=== PATIENT | female | born 1945 | race Caucasian/White ===

== ENCOUNTER 2016-08-18 10:20 | Emergency (ER) | payer MEDICARE ==
[~2016-08-18] VITALS: Ht 160 cm; Wt 127.0 kg
[~2016-08-18 10:20] MED LIST: ACET-2605 PO; CYCL10TA9 PO; ESCI20TA PO; GABA-502 PO; IPRA4AER IH; LISI-610 PO; LOPE1TAB13 PO; LOVA40TA PO; MELO-259 PO; METF500T7 PO; NPH,100V10 SUBQ; OXYC10TA86 PO; OXYC1TAB24 PO; PRE20 PO; QUE9 PO; RISP1TAB3 PO; RISP1TAB90 PO; TRAM50TA2 PO; TRAZ300T3 PO; VERA240T97 PO; VIT1CAPS8 PO
--- NOTE | 2016-08-18 10:33 | ED.REPORT ---
HPI-Trauma Minor / Fall Date of Service Aug 18, 2016 ED Provider: The patient is a 71 year old female with history of diabetes mellitus, neuropathy, hyperlipidemia, and hypertension, who presents to the emergency department by EMS after she had a ground level fall prior to arrival. The patient had a mechanical fall outside and landed on her right knee and elbow. She did not hit her head or lose consciousness. She complains of neck pain and chronic back pain that is unchanged. She denies any other injuries or traumas. She has chronic diarrhea. She denies fever, chills, abdominal pain, vomiting, dysuria, hematuria or cough. She is not on any blood thinners. Nursing Notes Stated Complaint: GLF Nursing Notes Reviewed: Yes Allergies: Coded Allergies: venom-honey bee (Verified Allergy, Unknown, 10/23/15) UPDATED FROM UNCODED amoxicillin (Verified Adverse Reaction, Intermediate, itching, 07/14/15) TOLERATES CEPHALOSPORINS codeine (Verified Adverse Reaction, Intermediate, Rash,Itching,, 07/14/15) Scheduled Albuterol/Ipratropium (Combivent Respimat Inhal [place]) 120 Spr/4 Gm Inhaler 2 PUFF IH QID Cholestyramine (Cholestyramine Packet) 4 Gm Packet 4-8 GM PO BIDAC Escitalopram Oxalate (Lexapro) 20 Mg Tablet 20 MG PO DAILY Gabapentin (Gabapentin) 300 Mg Capsule 300 MG PO BID Lisinopril (Zestril) 10 Mg Tablet 40 MG PO DAILY Lovastatin (Lovastatin) 40 Mg Tablet 40 MG PO HS Metformin ER (Metformin ER) 500 Mg Tablet 1,000 MG PO BIDWM NPH, Human Insulin Isophane (Novolin-N U100 Insulin Vial) 100 Unit/1 Ml Vial 80 UNIT SUBQ BID Prednisone (PredniSONE) 20 Mg Tablet 40 MG PO DAILY Risperidone (Risperidone) 1 Mg Tablet 1 MG PO DAILY Risperidone (Risperdal) 1 Mg Tablet 2 MG PO HS Trazodone (Trazodone) 300 Mg Tablet 300 MG PO HS Verapamil ER (Verapamil ER) 240 Mg Tber 240 MG PO DAILY Vit C/Vit E/Lutein/Min/[place]-3 (Ocuvite Softgel) 1 Each Capsule 1 EACH PO DAILY oxyCODONE ER (oxyCODONE ER) 10 Mg Tab.er.12h 10 MG PO DAILY Scheduled PRN Acetaminophen/Diphenhydramine (Tylenol Pm Ex-Strength Caplet) 500 Mg-25 Mg Tablet 2 EACH PO HS PRN PRN Insomnia Cyclobenzaprine (Cyclobenzaprine) 10 Mg Tablet 10 MG PO DAILY PRN PRN Spasm Loperamide/Simethicone (Imodium Multi-Symptom Rel Cplt) 1 Each Tablet 1-2 EACH PO DIRECTED PRN PRN For Diarrhea or Loose Stool Meloxicam (Meloxicam) 7.5 Mg Tablet 7.5 MG PO DAILY PRN PRN back pain take with food. Tramadol (Tramadol) 50 Mg Tablet 50-100 MG PO every 8 hours PRN PRN For Pain oxyCODONE-Acetaminophen 5-325 mg (oxyCODONE-Acetaminophen 5-325 mg) 1 Each Tablet 1 TAB PO Q6H PRN PRN For Pain General Time Seen by MD: 10:32 Chief Complaint Fall Hx Obtained From: Patient, EMS Arrived By: Ambulance Onset Occurred: Just prior to arrival Symptom Duration: Since onset Caused by: Fall on ground Severity: Current: Moderate Severity: Maximum: Moderate Recent Healthcare: No recent hospitalization Past Medical History Past Medical History C Diff Diverticulitis Pancreatic lesion Hx of shingles Chronic neuropathy Diabetes mellitus Anxiety Depression High cholesterol Sleep apnea on CPAP Aortic stenosis Hypertension Macular degeneration Past Surgical History Cardiac catheterization Hysterectomy Cataracts Family History Noncontributory Smoking History Former Smoker Social History daughter help with med dosing and grocery shopping. Visiting nurse weekly Alcohol Use: Denies alcohol use Drug Use: Denies drug use Other Social History: Good social support, Local resident Occupation retired, lives by self Ambulatory Status Cane Review of Systems Constitutional: Denies: Chills, Fever Respiratory: Denies: Non-productive cough Musculoskeletal: Reports: Back pain (chronic), Extremity pain, Joint pain, Neck pain Neurologic: Denies: Change LOC, Headache, Syncope Complete sys rev & neg: except as marked. GI: Reports: Diarrhea (chronic), Denies: Abdominal pain, Vomiting Female: Denies: Dysuria, Hematuria Physical Exam Initial Vital Signs Vital Signs (First) Date Time Temp Pulse Resp B/P Pulse Ox O2 Delivery O2 Flow Rate FiO2 08/18/16 10:39 36.9 75 10 145/69 97 Room Air Initial VS: Reviewed Head / Eyes: Atraumatic, Normocephalic, PERRL ENT: Mucous membranes moist, Conjunctiva normal, No scleral icterus Respiratory: Breath sounds normal, Clear to auscultation, No respiratory distress Abdomen / GI: Soft, Non-tender, No guarding, No rebound, No distention Lymphatic: No lymphadenopathy Extremities: Vascular intact, Neuro intact Skin: Warm, Dry, No cyanosis Neurologic: Alert, Oriented, Nonfocal Psychiatric: Mood/affect normal, Behavior normal, Normal thought content General/Constitutional: Awake, Alert Neck: No midline vertebral tend Cardiovascular: Heart rate NL, Regular rhythm Heart Sounds / Murmur: Positive: Systolic murmur present.. (II/) Lower Extremity / Pelvis / MS: Neurologic intact, Vascular intact Painful range of motion of her right knee. Contusion of right knee. Ankle / Foot: Atraumatic, Inspection NL, Non-tender, No deformity, Neurologic intact Interpretation & Diagnostics Lab Results Interpretation Result Diagram: 08/18/16 1107 08/18/16 1107 Test 08/18/16 11:07 08/18/16 12:25 White Blood Count 12.9th/mm3 (3.8-10.1) Red Blood Count 4.03mil/mm3 (3.90-5.20) Hemoglobin 11.8g/dL (12.0-15.6) Hematocrit 40.1% (35.0-46.0) Mean Corpuscular Volume 99.5fL (81-100) Mean Corpuscular Hemoglobin 29.3pg (27.0-35.0) Mean Corpuscular Hemoglobin Concent 29.4% (32.0-37.0) Red Cell Distribution Width 14.0% (12.3-15.4) Platelet Count 171bil/L (150-400) Neutrophils (%) (Auto) 35.4% (40-74) Lymphocytes (%) (Auto) 57.6% (14-46) Monocytes (%) (Auto) 4.7% (4-12) Eosinophils (%) (Auto) 1.6% (0-5) Basophils (%) (Auto) 0.3% (0-3) Sodium Level 143mEq/L (134-144) Potassium Level 4.8mEq/L (3.5-5.2) Chloride Level 105mEq/L (97-108) Carbon Dioxide Level 24mmol/L (18-29) Blood Urea Nitrogen 17mg/dL (8-27) Creatinine 0.86mg/dL (0.57-1.00) Estimat Glomerular Filtration Rate 94mL/min (>59) Glucose Level 153mg/dL (60-99) Calcium Level 10.1mg/dL (8.5-10.1) Total Bilirubin 0.3mg/dL (0.0-1.2) Aspartate Amino Transf (AST/SGOT) 16U/L (0-50) Alanine Aminotransferase (ALT/SGPT) 21U/L (0-32) Alkaline Phosphatase 58U/L (25-165) Total Protein 6.2g/dL (6.4-8.4) Albumin 3.7g/dL (3.4-5.0) ECG Interpretation ECG Interpretation: Sinus rhythm with a rate of 75 Time: 11:03 Interpreted by: ED physician X-Ray Chest Interpretation Chest Xray Interpretation: IMPRESSION: 1. No acute cardiopulmonary process is suspected. 2. Prominence of the cardiomediastinal silhouette is likely exaggerated by patient positioning. If there is high clinical concern for mediastinal trauma, please consider obtaining a CT of the chest with contrast. Dictated by: Tung Gurrola M.D. on 08/18/2016 at 11:01 Interpretation / Wet Read by: Interpret - Radiologist X-Ray Interpretation Xray Interpretation: IMPRESSION: 1. No acute lumbar fractures are evident. 2. Advanced multilevel degenerative changes of the lumbar spine. Dictated by: Tung Gurrola M.D. on 08/18/2016 at 10:56 Study Performed: Lumbar spine Interpretation / Wet Read by: Interpret - Radiologist Xray Interpretation: IMPRESSION: 1. No acute right knee fracture. 2. Mild to moderate degenerative changes of the right knee. Dictated by: Tung Gurrola M.D. 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 The actual degree of spinal stenosis may be more prominent than estimated by CT scanning, and would be more accurately assessed with MR scanning if clinically indicated. No acute trauma found. Dictated by: Mark Oneal M.D. on 08/18/2016 at 11:48 Study type: CT no contrast Interpretation / Wet Read by: Interpret - Radiologist Re-Eval/Medical Decision Med Decision/Clinical Course No dangerous cause for the fall is identified. No fractures or injuries. No metabolic or cardiogenic or infectious cause for the fall is discovered. I counseled her extensively regarding safe ambulation with a walker and cannot stoop over when picking up after her dog. Source of Hx: Old records, EMS Re-Evaluation/Progress : Time of Eval: 12:58 Re-Evaluation/Progress Note: Rechecked the patient. Discussed results, diagnosis, and plan for discharge. All questions were addressed. Counseled Regarding: Diagnosis, Lab results, Need for follow-up, When/why to return to ED Discharge & Departure Impression: Primary Impression: Fall from ground level Additional Impressions: Contusion of neck Encounter type: initial encounter Qualified Code: S10.93XA - Contusion of unspecified part of neck, initial encounter Contusion of right knee Encounter type: initial encounter Qualified Code: S80.01XA - Contusion of right knee, initial encounter Contusion of lower back Encounter type: initial encounter Qualified Code: S30.0XXA - Contusion of lower back and pelvis, initial encounter Disposition: Home Discharge Condition All VS Reviewed: Yes Condition: Stable Patient Instructions: Contusions in Adults (ED), Fall Prevention for Older Adults (GEN) Additional Instructions: Thank you for entrusting us with your care today. Your workup today included labs, EKG, neck CT, chest x-ray, lumbar spine x-ray, and right knee x-ray. Your results are reassuring. There is no evidence of any fractures. Take ibuprofen 400 mg every 8 hours and/or Tylenol 1000 mg every 6 hours. Take Vicodin 1 or 2 every 6 hours as needed for severe pain. I recommend that you use your walker to ambulate. Followup with your regular doctor if your symptoms are not improving in 1 week. Seek care sooner for any new or concerning symptoms. Referrals: Harrison Azevedo MD (PCP) Scribe Attestation Portions of this note were transcribed by Katt Crook. I, Dr. Ornelas personally performed the history, physical exam and medical decision-making; I reviewed and confirmed the accuracy of the information in the transcribed note. Signed by: Abisai Sung, 08/18/2016 at 1305. copies to: Harrison Azevedo MD, Kirk H MD Aug 18, 2016 10:33 Katt Crook Aug 18, 2016 10:40
[2016-08-18 10:39] VITALS: BP 145/69; PULSE 75; RESP 10; O2SAT 97
[2016-08-18] MEDS ORDERED: HYDROcodone-APAP 5-325 mg Tablet PO ONE ×2 (10:40→13:05)
[2016-08-18 11:19] LABS: BASOPHILS % (AUTO) 0.3 % (0-3)
[2016-08-18 11:26] LABS: EOSINOPHILS % (AUTO) 1.6 % (0-5); MONOCYTES % (AUTO) 4.7 % (4-12); Mean Corpuscular Hemoglobin 29.3 pg (27.0-35.0); Mean Corpuscular Volume 99.5 fL (81-100); NEUTROPHILS % (AUTO) 35.4 % (40-74); Platelet Count 171 bil/L (150-400)
--- NOTE | 2016-08-18 11:52 | DRSVH ---
PROCEDURE: CT CERVICAL SPINE WITHOUT CONTRAST ([id number]) INDICATIONS: trauma TECHNIQUE: Noncontrast 3 mm thick sections acquired from the skull base to the T4 level. Sagittal and coronal r eformats were then constructed. For radiation dose reduction, the following was used: automated exp osure control, adjustment of mA and/or kV according to patient size. COMPARISON: [facility], CT, C-SPINE W/O CONTRAST, 06/13/2013, 20:05. FINDINGS: Image quality: Excellent. Bones: No fractures or dislocations, and previously present degenerative disc disease and facet oste oarthritis along the cervical spine, most pronounced at the mid cervical spine, is again seen without appreciable worsening. This is most evident at C4-5 through C6-7.. Visualized superior ribs are in tact. Soft tissues: Prevertebral soft tissues are normal in thickness. No paravertebral hematomas. No ap ical pneumothoraces. IMPRESSION: Stable appearing quite severe midcervical degenerative disc disease and facet osteoarthri tis with associated moderately severe spinal and foraminal stenosis at C5-6 and C6-7. The actual deg ree of spinal stenosis may be more prominent than estimated by CT scanning, and would be more accurat trang assessed with MR scanning if clinically indicated. No acute trauma found. Dictated by: Mark Oneal M.D. on 08/18/2016 at 11:48 Approved by: Mark Oneal M.D. on 08/18/2016 at 11:51
--- NOTE | 2016-08-18 12:02 | DRSVH ---
PROCEDURE: X-RAY LUMBAR SPINE, 2 OR 3 VIEW INDICATIONS: trauma TECHNIQUE: 3 views of the lumbar spine were acquired. COMPARISON: None. FINDINGS: Bones: There are 5 lumbar-type vertebral bodies. The lowest intervertebral disk space is designated a s L5-S1. The vertebral body heights are well-maintained without evidence to suggest an acute compress ion fracture. The bone mineralization is within normal limits. Severe multilevel degenerative changes of the lumbar spine are evident demonstrating multilevel disc height loss, endplate irregularity, disc osteophyte complexes, facet arthropathy. These findings are more pronounced within the upper lumbar levels. Moderate degenerative changes of the sacroiliac shaheen nts are present. Degenerative changes of the right hip are incidentally noted. Soft tissues: The soft tissues of the imaged abdomen and pelvis are within normal limits. IMPRESSION: 1. No acute lumbar fractures are evident. 2. Advanced multilevel degenerative changes of the lumbar spine. Dictated by: Tung Gurrola M.D. on 08/18/2016 at 10:56 Approved by: Tung Gurrola M.D. on 08/18/2016 at 11:01
--- NOTE | 2016-08-18 12:04 | DRSVH ---
PROCEDURE: X-RAY CHEST ONE VIEW, PORTABLE ([id number]) INDICATIONS: trauma TECHNIQUE: One view of the chest was acquired. COMPARISON: [facility], CT, CT ANGIO CHEST PE, 03/06/2016, 15:27. [facility] l, CR, XR CHEST 1VW (PORTABLE), 03/06/2016, 12:01. [facility], CR, XR CHEST 2VW, 015, 16:44. FINDINGS: Surgical changes and devices: None. Lungs and pleura: No definite consolidation, effusion, or pneumothorax is evident. Mediastinum: The cardiomediastinal silhouette is prominent in size, which is felt to be related to po rtable supine technique. There is aortic atherosclerosis. Bones and chest wall: No suspicious bony lesions. Degenerative changes of the spine are present. O verlying soft tissues appear unremarkable. IMPRESSION: 1. No acute cardiopulmonary process is suspected. 2. Prominence of the cardiomediastinal silhouette is likely exaggerated by patient positioning. If there is high clinical concern for mediastinal trauma, please consider obtaining a CT of the chest wi th contrast. Dictated by: Tnug Gurrola M.D. on 08/18/2016 at 11:01 Approved by: Tung Gurrola M.D. on 08/18/2016 at 11:02
--- NOTE | 2016-08-18 12:06 | DRSVH ---
PROCEDURE: X-RAY RIGHT KNEE, THREE VIEWS ([id number]) INDICATIONS: trauma TECHNIQUE: 4 views of the knee were acquired. COMPARISON: [facility], , KNEE 3VW (RT), 10/24/2013, 18:12. FINDINGS: Bones: No fractures or dislocations. No suspicious bony lesions. The bone mineralization is within normal limits. Moderate enthesophytes are evident at the proximal and distal margins of the patella and at the tibial tubercle. Spurring of the tibial spines is present. Their small marginal osteoph ytes within the lateral tibiofemoral compartment. Soft tissues: No joint effusion. No suspicious soft tissue calcifications. IMPRESSION: 1. No acute right knee fracture. 2. Mild to moderate degenerative changes of the right knee. Dictated by: Tung Gurrola M.D. on 08/18/2016 at 11:03 Approved by: Tung Gurrola M.D. on 08/18/2016 at 11:05
[2016-08-18 12:07] VITALS: BP 153/66; PULSE 77; RESP 14; O2SAT 97
[2016-08-18 13:30] LABS: APPEARANCE,URINE HAZY (CLEAR,HAZY); COLOR,URINE YELLOW (YELLOW); OCCULT BLOOD,URINE NEGATIVE (NEGATIVE); PH,URINE 5.5 (5.0-8.0); UROBILINOGEN,URINE NORMAL (NORMAL)
[2016-08-18 14:16] VITALS: BP 153/66; PULSE 77; RESP 14; O2SAT 97
== END 2016-08-18 13:35 | disposition home or self-care (01) ==
LOC: SED 10:20 → EDUNIT# 10:20 → EDBD 10:20 → SED 13:35
DX: S10.93XA Contusion of unspecified part of neck, initial encounter (principal); S80.01XA Contusion of right knee, initial encounter; S30.0XXA Contusion of lower back and pelvis, initial encounter; W18.39XA Other fall on same level, initial encounter; Y93.K1 Activity, walking an animal; Y92.89 Other specified places as the place of occurrence of the external cause; Y99.8 Other external cause status; R19.7 Diarrhea, unspecified; I10 Essential (primary) hypertension; E11.40 Type 2 diabetes mellitus with diabetic neuropathy, unspecified; G47.30 Sleep apnea, unspecified; Z95.5 Presence of coronary angioplasty implant and graft; Z79.4 Long term (current) use of insulin; Z79.84 Long term (current) use of oral hypoglycemic drugs; Z87.891 Personal history of nicotine dependence; Z88.1 Allergy status to other antibiotic agents; Z88.5 Allergy status to narcotic agent; Z91.030 Bee allergy status

== ENCOUNTER 2016-12-04 16:18 | Emergency (ER) | payer MEDICARE ==
[~2016-12-04] VITALS: Ht 162.6 cm; Wt 127.3 kg
[2016-12-04 17:06] VITALS: BP 127/76; RESP 12; O2SAT 97
--- NOTE | 2016-12-04 17:25 | ED.REPORT ---
HPI-Ear Pain/Problem/FB Date of Service Dec 04, 2016 ED Provider: Anam Ash MD Patient is a 71 year old female with a history of COPD, CHF and diabetes who presents to the ED complaining of left ear pain onset yesterday morning. Associated symptoms include jaw pain. She denies difficulty talking or difficulty swallowing. The patient states that she can't shut her jaw all of the way due to pain. She also reports she's had an ear infection before and is concerned she has an ear infection. Nursing Notes Stated Complaint: JAW PAIN,LT EAR PAIN Chief Complaint: ENT & Mouth Nursing Notes Reviewed: Yes Allergies: Coded Allergies: venom-honey bee (Verified Allergy, Unknown, 10/23/15) UPDATED FROM UNCODED amoxicillin (Verified Adverse Reaction, Intermediate, itching, 07/14/15) TOLERATES CEPHALOSPORINS codeine (Verified Adverse Reaction, Intermediate, Rash,Itching,, 07/14/15) Scheduled Albuterol/Ipratropium (Combivent Respimat Inhal [place]) 120 Spr/4 Gm Inhaler 2 PUFF IH QID Cefdinir (Cefdinir) 300 Mg Capsule 300 MG PO BID Cholestyramine (Cholestyramine Packet) 4 Gm Packet 4-8 GM PO BIDAC Escitalopram Oxalate (Lexapro) 20 Mg Tablet 20 MG PO DAILY Gabapentin (Gabapentin) 300 Mg Capsule 300 MG PO BID Lisinopril (Zestril) 10 Mg Tablet 40 MG PO DAILY Lovastatin (Lovastatin) 40 Mg Tablet 40 MG PO HS Metformin ER (Metformin ER) 500 Mg Tablet 1,000 MG PO BIDWM NPH, Human Insulin Isophane (Novolin-N U100 Insulin Vial) 100 Unit/1 Ml Vial 80 UNIT SUBQ BID Prednisone (PredniSONE) 20 Mg Tablet 40 MG PO DAILY Risperidone (Risperidone) 1 Mg Tablet 1 MG PO DAILY Risperidone (Risperdal) 1 Mg Tablet 2 MG PO HS Trazodone (Trazodone) 300 Mg Tablet 300 MG PO HS Verapamil ER (Verapamil ER) 240 Mg Tber 240 MG PO DAILY Vit C/Vit E/Lutein/Min/[place]-3 (Ocuvite Softgel) 1 Each Capsule 1 EACH PO DAILY oxyCODONE ER (oxyCODONE ER) 10 Mg Tab.er.12h 10 MG PO DAILY Scheduled PRN Acetaminophen/Diphenhydramine (Tylenol Pm Ex-Strength Caplet) 500 Mg-25 Mg Tablet 2 EACH PO HS PRN PRN Insomnia Cyclobenzaprine (Cyclobenzaprine) 10 Mg Tablet 10 MG PO DAILY PRN PRN Spasm Ibuprofen (Ibuprofen) 800 Mg Tablet 800 MG PO TID PRN PRN For Pain Loperamide/Simethicone (Imodium Multi-Symptom Rel Cplt) 1 Each Tablet 1-2 EACH PO DIRECTED PRN PRN For Diarrhea or Loose Stool Meloxicam (Meloxicam) 7.5 Mg Tablet 7.5 MG PO DAILY PRN PRN back pain take with food. Tramadol (Tramadol) 50 Mg Tablet 50-100 MG PO every 8 hours PRN PRN For Pain oxyCODONE-Acetaminophen 5-325 mg (oxyCODONE-Acetaminophen 5-325 mg) 1 Each Tablet 1 TAB PO Q6H PRN PRN For Pain General Time Seen by MD: 17:23 Chief Complaint Ear problem left Hx Obtained From: Patient Arrived By: Walk-in Onset Occurred: Yesterday Symptom Duration: Since onset Quality: Painful Severity: Current: Moderate Similar Sx Previous: Yes Past Medical History Past Medical History C Diff Diverticulitis Pancreatic lesion Hx of shingles Chronic neuropathy Anxiety Depression High cholesterol Sleep apnea on CPAP Aortic stenosis Macular degeneration Reports: COPD, Congestive heart failure, Diabetes mellitus, Hypertension Past Surgical History Cardiac catheterization Hysterectomy Cataracts Family History Noncontributory Smoking History Former Smoker Social History daughter help with med dosing and grocery shopping. Visiting nurse weekly Alcohol Use: Denies alcohol use Drug Use: Denies drug use Other Social History: Local resident Occupation retired, lives by self Ambulatory Status Cane Review of Systems Review of Systems Note: +jaw pain -difficulty talking Constitutional: Denies: Chills, Fever Ears / Nose / Throat: Reports: Earache left Complete sys rev & neg: except as marked. Additional Review of Systems Respiratory: Denies: Non-productive cough, Shortness of breath GI: Denies: Nausea, Vomiting Skin: Denies Itching, Denies Rash Physical Exam Initial Vital Signs Vital Signs (First) Date Time Temp Pulse Resp B/P Pulse Ox O2 Delivery O2 Flow Rate FiO2 12/04/16 17:06 37.0 80 12 127/76 97 Room Air Initial VS: Reviewed General/Constitutional: Awake, Alert, No acute distress ENT: Atraumatic, Airway patent, Mucous membranes moist, Pharynx NL left TM erythematous with effusion Head / Eyes: Atraumatic, Normocephalic, PERRL, EOMI Neck: Atraumatic, Supple, No adenopathy, No swelling Respiratory / Chest: Atraumatic, No respiratory distress Skin: Atraumatic, Color NL, No rash, Warm, Dry Neurologic: Oriented X3, Speech NL Upper Extremity / MS: Atraumatic, Full range of motion Psychiatric: Affect NL, Mood NL Re-Eval/Medical Decision Med Decision/Clinical Course 71-year-old female presenting with left ear pain. On exam she has left acute otitis media. She has no trismus. Her vital signs are stable. She will be treated with cefdinir given her penicillin allergy. Return precautions given. I recommend she follow up with primary doctor 1-2 days. Re-Evaluation/Progress : Time of Eval: 17:37 Re-Evaluation/Progress Note: Discussed plan for discharge. Patient understands and agrees to plan. All questions were addressed. Counseled Regarding: Diagnosis, Need for follow-up, When/why to return to ED Discharge & Departure Primary Impression: Otitis media Otitis media type: unspecified Laterality: left Chronicity: unspecified Qualified Code: H66.92 - Otitis media, unspecified, left ear Disposition: Home Discharge Condition All VS Reviewed: Yes Condition: Stable Patient Instructions: Otitis Media (ED) Additional Instructions: Your left ear is infected. Take the antibiotic to help with the infection. You can take Tylenol as needed for pain. Follow up with your primary care physician later this week. Return to the emergency department if you develop any new or concerning symptoms including difficulty swallowing. Referrals: Harrison Azevedo MD (PCP) Rissa[place]jessica Attestation Portions of this note were transcribed by Ivette Grubbs. I, Dr. Ash personally performed the history, physical exam and medical decision-making; I reviewed and confirmed the accuracy of the information in the transcribed note. Signed by: Abisai Murcia, 12/04/16 copies to: Harrison Azevedo MD, Ben M MD Dec 04, 2016 17:25 Rachna Grubbs Dec 04, 2016 17:35
[2016-12-04] MEDS ORDERED: IBUP800T28 PO (17:39)
[2016-12-04] MEDS ORDERED: CEFD300C3 PO (17:39)
[2016-12-04 17:51] VITALS: BP 127/76; PULSE 80; RESP 12; O2SAT 97
== END 2016-12-04 17:52 | disposition home or self-care (01) ==
LOC: SED 16:18
DX: H66.92 Otitis media, unspecified, left ear (principal); J44.9 Chronic obstructive pulmonary disease, unspecified; I50.9 Heart failure, unspecified; E11.9 Type 2 diabetes mellitus without complications; F41.9 Anxiety disorder, unspecified; F32.9 Major depressive disorder, single episode, unspecified; I11.0 Hypertensive heart disease with heart failure; Z87.891 Personal history of nicotine dependence; Z91.030 Bee allergy status; Z88.1 Allergy status to other antibiotic agents; Z88.5 Allergy status to narcotic agent; Z79.84 Long term (current) use of oral hypoglycemic drugs

== ENCOUNTER 2017-01-02 14:44 | Emergency (ER) | payer MEDICARE ==
[~2017-01-02] VITALS: Ht 162.6 cm; Wt 127.3 kg
[~2017-01-02 14:44] MED LIST changes: +CEFD300C3 PO; +IBUP800T28 PO
[2017-01-02 14:50] VITALS: BP 140/67; RESP 28; O2SAT 95
--- NOTE | 2017-01-02 15:09 | ED.REPORT ---
HPI-General Illness Date of Service Jan 02, 2017 ED Provider: Darron Martin MD Pt is a 71 year old female with a history of diabetes, hypertension, C. difficile CHF, COPD, high cholesterol and ear infections who is brought to the ED via EMS complaining of left ear pain. The pain began three weeks ago and is now radiating into her left jaw and congregation. The pt was seen in the ED on 2016 and diagnosed with an ear infection. She was prescribed Cefdinir at that time, but completed the course without relief. Nursing Notes Stated Complaint: LEFT EAR PAIN Chief Complaint: ENT & Mouth Nursing Notes Reviewed: Yes Allergies: Coded Allergies: venom-honey bee (Verified Allergy, Unknown, 10/23/15) UPDATED FROM UNCODED amoxicillin (Verified Adverse Reaction, Intermediate, itching, 07/14/15) TOLERATES CEPHALOSPORINS codeine (Verified Adverse Reaction, Intermediate, Rash,Itching,, 07/14/15) Scheduled Albuterol/Ipratropium (Combivent Respimat Inhal [place]) 120 Spr/4 Gm Inhaler 2 PUFF IH QID Azithromycin (Zithromax (Z-Francisco)) 250 Mg Tablet 250 MG PO DIRECTED Take two tablets by mouth on day 1, then take one tablet daily on days 2 through 5. Cefdinir (Cefdinir) 300 Mg Capsule 300 MG PO BID Cholestyramine (Cholestyramine Packet) 4 Gm Packet 4-8 GM PO BIDAC Escitalopram Oxalate (Lexapro) 20 Mg Tablet 20 MG PO DAILY Gabapentin (Gabapentin) 300 Mg Capsule 300 MG PO BID Lactobacillus Combo No.11 (Probiotic) 1 Each Cap.sprink 1 EACH PO DAILY Lisinopril (Zestril) 10 Mg Tablet 40 MG PO DAILY Lovastatin (Lovastatin) 40 Mg Tablet 40 MG PO HS Metformin ER (Metformin ER) 500 Mg Tablet 1,000 MG PO BIDWM NPH, Human Insulin Isophane (Novolin-N U100 Insulin Vial) 100 Unit/1 Ml Vial 80 UNIT SUBQ BID Prednisone (PredniSONE) 20 Mg Tablet 40 MG PO DAILY Risperidone (Risperidone) 1 Mg Tablet 1 MG PO DAILY Risperidone (Risperdal) 1 Mg Tablet 2 MG PO HS Trazodone (Trazodone) 300 Mg Tablet 300 MG PO HS Verapamil ER (Verapamil ER) 240 Mg Tber 240 MG PO DAILY Vit C/Vit E/Lutein/Min/[place]-3 (Ocuvite Softgel) 1 Each Capsule 1 EACH PO DAILY oxyCODONE ER (oxyCODONE ER) 10 Mg Tab.er.12h 10 MG PO DAILY Scheduled PRN Acetaminophen/Diphenhydramine (Tylenol Pm Ex-Strength Caplet) 500 Mg-25 Mg Tablet 2 EACH PO HS PRN PRN Insomnia Cyclobenzaprine (Cyclobenzaprine) 10 Mg Tablet 10 MG PO DAILY PRN PRN Spasm Ibuprofen (Ibuprofen) 800 Mg Tablet 800 MG PO TID PRN PRN For Pain Loperamide/Simethicone (Imodium Multi-Symptom Rel Cplt) 1 Each Tablet 1-2 EACH PO DIRECTED PRN PRN For Diarrhea or Loose Stool Meloxicam (Meloxicam) 7.5 Mg Tablet 7.5 MG PO DAILY PRN PRN back pain take with food. Tramadol (Tramadol) 50 Mg Tablet 50-100 MG PO every 8 hours PRN PRN For Pain oxyCODONE-Acetaminophen 5-325 mg (oxyCODONE-Acetaminophen 5-325 mg) 1 Each Tablet 1 TAB PO Q6H PRN PRN For Pain General Time Seen by MD: 15:08 Chief Complaint Other (Left ear pain) Hx Obtained From: Patient, EMS Arrived By: Ambulance Sudden in Onset?: No Onset Occurred: More than a week ago... Symptom Duration: Since onset Recent Healthcare: Recent doctor visit Similar Sx Previous: Yes Past Medical History Past Medical History C Diff Diverticulitis Pancreatic lesion Hx of shingles Chronic neuropathy Anxiety Depression High cholesterol Sleep apnea on CPAP Aortic stenosis Macular degeneration Reports: COPD, Congestive heart failure, Diabetes mellitus, Hypertension Past Surgical History Cardiac catheterization Hysterectomy Cataracts Family History Noncontributory Smoking History Former Smoker Social History daughter help with med dosing and grocery shopping. Visiting nurse weekly Alcohol Use: Denies alcohol use Drug Use: Denies drug use Other Social History: Local resident Occupation retired, lives by self Ambulatory Status Cane Review of Systems left jaw pain Full Review of Systems Ears / Nose / Throat: Reports: Earache left Respiratory: Denies: Shortness of breath Cardiovascular: Denies: Chest pain GI: Denies: Abdominal pain Musculoskeletal: Denies: Back pain, Neck pain Skin: Denies Rash Neurologic: Reports: Headache (left congregation) Complete sys rev & neg: except as marked. Physical Exam Vital Signs Vital Signs Date Time Temp Pulse Resp B/P Pulse Ox O2 Delivery O2 Flow Rate FiO2 01/02/17 14:50 37.3 85 28 140/67 95 Room Air Initial VS: Reviewed General/Constitutional: Awake, Alert Head / Eyes: Atraumatic, Normocephalic, PERRL, EOMI ENT: Airway patent, Mucous membranes moist, Pharynx NL left TM erythematous and bulging but intact external canal appears normal no mastoid tenderness no swelling or drainage from the external ear dentition does not show any acute abnormalities Neck: Atraumatic, Supple, Full range of motion Respiratory / Chest: Atraumatic, Breath sounds NL, Breath sounds = bilat, No respiratory distress Cardiovascular: Heart rate NL, Regular rhythm, Heart sounds NL Abdomen: Atraumatic, Soft, Non-tender Back: Atraumatic, Full range of motion Upper Extremities Upper Extremity / MS: Atraumatic, Full range of motion Lower Extremity / Pelvis / MS: Atraumatic, Full range of motion Skin: Atraumatic, Color NL, No rash, Warm, Dry Neurologic: Oriented X3, Speech NL, No motor deficits, No sensory deficits Psychiatric: Affect NL, Mood NL Re-Eval/Medical Decision Med Decision/Clinical Course Pt is a 71 year old female with a history of diabetes, hypertension, C. difficile CHF, COPD, high cholesterol and ear infections who is brought to the ED via EMS complaining of left ear pain. Is her second visit for this stated complaint and she was previously treated with Cefdinir due to amoxicillin allergy. She reports that this did not resolve her symptoms. She presents back to the emergency department requesting reevaluation. Upon arrival she is afebrile stable vital signs and in no apparent distress. Examination reveals a bulging slightly erythematous tympanic membrane. There is no evidence of perforated tympanic membrane. There is no evidence of malignant otitis externa nor is the patient diabetic or immunocompromised. There is no evidence of mastoiditis. I see no evidence of dental infection. There is no evidence of otitis externa, soft tissue infection, swelling, abscess or other immediately concerning process. The patient is nontoxic in appearance and neurologically intact. The constellation of symptoms is not convincing for venous sinus thrombosis. Given the patient's previous treatment failure and antibiotic allergies I have opted to treat her with azithromycin. Given her history of recurrent otitis media and failure of initial course of therapy I have referred her to ENT for follow-up and further evaluation. At this time, I feel that she is appropriate for discharge home. In the emergency department she was given one tablet of [place] for pain. I prescribed her probiotics in addition to her antibiotics given her history of C. difficile. Prior to discharge follow-up and return precautions were reviewed in detail with the patient who verbalized understanding and agreement with the plan. The patient was discharged in stable condition. Source of Hx: Old records Time of Eval: 15:08 Patient Status: Condition improved Re-Evaluation/Progress Note: Pt informed of the diagnosis and plan for discharge during the initial interview. The pt understands and agrees with the plan. All questions are addressed at this time. Counseled Regarding: Diagnosis, Need for follow-up, When/why to return to ED Discharge & Departure Primary Impression: Otitis media Otitis media type: unspecified Laterality: left Chronicity: unspecified Qualified Code: H66.92 - Otitis media, unspecified, left ear Additional Impression: Left ear pain Disposition: Home Discharge Condition All VS Reviewed: Yes Condition: Stable Patient Instructions: Otitis Media (ED) Additional Instructions: Thank you for seeking care at the emergency room. Our primary goal today in the Emergency Department was to evaluate you for any life-threatening conditions. Your evaluation was reassuring. You will be discharged with a prescription for Azithromycin and a probiotic. Take these as prescribed. You should follow-up with your primary doctor in the next week. You should return to the Emergency Department immediately if you develop worsening pain, fevers, vomiting, cough, shortness of breath, chest pain, lightheadedness, weakness or any other concerning signs or symptoms. Thank you for letting us partake in your care today. Referrals: Harrison Azevedo MD (PCP) Scribe Attestation Portions of this note were transcribed by Genevieve Lees. I, Dr. Martin personally performed the history, physical exam and medical decision-making; I reviewed and confirmed the accuracy of the information in the transcribed note. copies to: Harrison Azevedo MD, Beck O MD Jan 02, 2017 15:09 GENEVIEVE LEES Jan 02, 2017 15:16 life-threatening conditions. Your evaluation was reassuring. You will be discharged with a prescription for Azithromycin and a probiotic. Take these as prescribed. You should follow-up with your primary doctor in the next week. You should return to the Emergency Department immediately if you develop worsening pain, fevers, vomiting, cough, shortness of breath, chest pain, lightheadedness, weakness or any other concerning signs or symptoms. Thank you for letting us partake in your care today. Referrals: Harrison Azevedo MD (PCP) Scribe Attestation Portions of this note were transcribed by Genevieve Lees. I, Dr. Martin personally performed the history, physical exam and medical decision-making; I reviewed and confirmed the accuracy of the information in the transcribed note. copies to: Harrison Azevedo MD, Beck O MD Jan 02, 2017 15:09 GENEVIEVE LEES Jan 02, 2017 15:16
[2017-01-02] MEDS ORDERED: LACT1CAP73 PO (15:24)
[2017-01-02] MEDS ORDERED: AZIT250T4 PO (15:24)
[2017-01-02] MEDS ORDERED: HYDROcodone-APAP 5-325 mg Tablet PO ONE (15:25)
== END 2017-01-02 15:54 | disposition home or self-care (01) ==
LOC: EDUNIT# 14:44 → EDBD 14:44 → SED 14:44
DX: H66.92 Otitis media, unspecified, left ear (principal); H92.02 Otalgia, left ear; E11.40 Type 2 diabetes mellitus with diabetic neuropathy, unspecified; I11.0 Hypertensive heart disease with heart failure; I50.9 Heart failure, unspecified; Z87.891 Personal history of nicotine dependence; Z90.710 Acquired absence of both cervix and uterus; Z79.84 Long term (current) use of oral hypoglycemic drugs; Z88.0 Allergy status to penicillin; Z88.5 Allergy status to narcotic agent; Z91.030 Bee allergy status